=== PATIENT | female | born 1940 | race Caucasian/White ===

== ENCOUNTER 2016-07-03 02:48 | Inpatient (IN) | payer OTHER ==
[~2016-07-03] VITALS: Ht 154.9 cm; Wt 96.0 kg
[~2016-07-03 02:48] MED LIST: ACTONEL150 MG PO; ACTONEL75 MG PO; ACTOS15 MG PO; ALLERGY RELIEF10 M1 PO; ALLERGY RELIEF10 M5 PO; AMARYL2 MG PO; AMLODIPINE BESY10 MG PO; AMLODIPINE BESYL5 MG PO; Advair HFA 115/21 IH; Amaryl PO; BACLOFEN10 MG PO; BACTRIM,SEPT1 TABLET PO; BENADRYL25 MG PO; CALCIUM 500 +1 EACH PO; CALCIUM CITRAT1 EA10 PO; CALCIUM CITRAT1 EA18 PO; CALCIUM CITRAT200 MG PO; CLOPIDOGREL75 MG PO; COCONUT OIL1000 MG PO; COLON HEALTH PO; COMBIVENT INH14.7 GM IH; COMPLETE MULTI1 EAC1 PO; COUMADIN,JANTOVE5 MG PO; COZAAR100 MG PO; DAILY VALUE1 EACH PO; DIOVAN160 MG PO; DOCUSATE SODIU100 MG PO; DUONEB 2.5-0.5 M3 ML IH; FIBER; FIBER LAXATIVE500 MG PO; FIBER THERAPY0.52 GM PO; FIBER THERAPY625 MG PO; FISH OIL SOFTG1 EACH PO; FLORASTOR250 MG PO; FUROSEMIDE40 MG PO; GEMFIBROZIL600 MG PO; GLUCOSAMINE &1 EAC1 PO; Glucophage PO; HUMALOG100 UNIT/2 SC; HYDROCODON-ACE1 EAC8 PO; HYDROCODONE-AP1 EA12 PO; LASIX10 MG PO; LASIX40 MG PO; LEVAQUIN500 MG PO; LEVEMIR FL100 UNIT/1 SC; LEVOFLOXACIN250 MG PO; LEVOTHYROXINE100 MCG PO; LEVOXYL112 MCG PO; Lasix PO; Levothroid,Synthroid PO; METFORMIN HCL500 MG PO; Micro-K,K-Tab,K-Dur, PO; NEURONTIN100 MG PO; NEXIUM40 MG PO; NORVASC5 MG PO; NOVOLOG PE100 UNITS/ SC; NOVOLOG100 UNIT/1 SC; OMEGA 3 500 SO1 EACH PO; OMEGA-3 ACID ETH1 GM PO; OMEPRAZOLE40 M1 PO; Oyst-Cal D, Oscal W/ PO; PERCOCET 5/31 TABLET PO; POTASSIUM GLUCO90 MG PO; PROVENTIL,2.5 MG/3 M IH; Pravachol PO; Protonix PO; SENNA S TABLET1 EACH PO; SIMVASTATIN40 MG PO; SYNTHROID112 MCG PO; Senokot S,Pericolace PO; THERAGRAN1 TABLET PO; TOUJEO SOL300 UNIT/1 SC; Theragran PO; VICODIN ES 7.51 EAC1 PO; VICODIN ES 71 TABLET PO; VITAMIN D50000 UNI1 PO; Vitamin D, Drisdol PO; XARELTO20 MG PO; Zocor PO
[2016-07-03 03:18] LABS: HEMATOCRIT 43.1 % (36.0-46.0); MCH 27.5 PG (29.0-34.0); MCHC 31.6 G/DL (30.0-36.0); MCV 87.2 FL (83-99); MEAN PLAT.VOLUME 10.9 uM^3 (9.5-12.4); PLATELET COUNT 274 K/uL (156-360); RBC DIS.WIDTH-CV 17.4 % (11.8-14.6); RBC DIS.WIDTH-SD 54.8 % (39-53); RED BLOOD COUNT 4.94 M/uL (3.80-5.20); WHITE BLOOD COUNT 12.6 K/uL (4.1-10.2)
[2016-07-03 03:19] LABS: EOSINOPHIL (%) 1.8 % (0-5); EOSINOPHIL COUNT 0.2 K/uL (0-0.3); IMMATURE GRANULOCYTE (%) 0.5 % (0.0-0.7); IMMATURE GRANULOCYTE COUNT 0.6 K/uL; LYMPHOCYTE COUNT 2.1 K/uL (1.0-2.8); MONOCYTE (%) 8.5 % (3-12); MONOCYTE COUNT 1.1 K/uL (0-0.8); NEUTROPHIL (%) 72.3 % (45-76); NEUTROPHIL COUNT 9.1 K/uL (1.8-6.4)
[2016-07-03 03:29] LABS: INTER. NORMALIZED RATIO 1.2; PROTHROMBIN TIME 12.6 (9.2-11.2)
[2016-07-03 03:36] LABS: CHLORIDE 114 mEq/L (99-109); POTASSIUM 4.9 mEq/L (3.7-5.4); SODIUM 146 mEq/L (136-147)
[2016-07-03 03:38] LABS: GLUCOSE 70 mg/dL (70-99)
[2016-07-03 03:39] LABS: ANION GAP 13 MEQ/L (2-14)
[2016-07-03 03:42] LABS: GFR ESTIMATE (CALCULATED) 46 mL/min/
[2016-07-03 03:43] LABS: UREA NITROGEN (BUN) 43 mg/dL (9-23)
[2016-07-03 04:08] LABS: HDL CHOLESTEROL 32 MG/DL (Desirable>=50); LDL CHOLESTEROL 131 mg/dL (Desirable<100); NON-HDL CHOLESTEROL 166 mg/dL (Desirable<160); TOTAL CHOLESTEROL 198 mg/dL (Desirable<200); TRIGLYCERIDES 173 MG/DL (Normal: <150)
[2016-07-03 04:09] LABS: ADD MIUA? YES; BILIRUBIN NEGATIVE; BLOOD SMALL; COLOR YELLOW ((YELLOW)); GLUCOSE (STRIP) NEGATIVE; KETONES NEGATIVE; LEUKOCYTES SMALL; NITRITE POSITIVE; PROTEIN (STRIP) NEGATIVE; SPECIFIC GRAVITY 1.012 (1.000-1.030); UROBILINOGEN 0.2 MG/DL (0.2-1.0)
[2016-07-03 04:13] LABS: BACTERIA NONE SEEN /HPF; EPITHELIAL CELLS RARE /HPF; MUCUS TRACE /LPF; RED BLOOD CELLS 0-5 /HPF (0-5); UCUL ADDED? NO; WHITE BLOOD CELLS 15-20 /HPF (0-5)
[2016-07-03 05:24] LABS: POINT-OF-CARE METER ID UU14100415
[2016-07-03 06:22] VITALS: BP 136/66
[2016-07-03 07:04] LABS: Estimated Average Glucose 223 mg/dL (70-123)
[2016-07-03 07:07] LABS: HEMOGLOBIN A1c (GLYCOHEMOGLOB) 9.4 % HGB (Below 5.7)
[2016-07-03 08:06] VITALS: BP 166/70
[2016-07-03 11:39] VITALS: BP 142/65
[2016-07-03 13:14] LABS: ALKALINE PHOSPHATASE 59 IU/L (3-129); ANION GAP 10 MEQ/L (2-14); CHLORIDE 110 MEQ/L (99-109); GFR ESTIMATE (CALCULATED) 51 mL/min/; MCH 26.7 PG (29.0-34.0); MCHC 30.3 G/DL (30.0-36.0); MCV 88.1 FL (83-99); MEAN PLAT.VOLUME 10.9 uM^3 (9.5-12.4); PLATELET COUNT 226 K/uL (156-360); POTASSIUM 4.1 MEQ/L (3.7-5.4); RBC DIS.WIDTH-CV 17.2 % (11.8-14.6); RBC DIS.WIDTH-SD 55.3 % (39-53); SAMPLE HEMOLYSIS CHECK 0; SAMPLE ICTERIC CHECK 0; SAMPLE LIPEMIA CHECK 0; SODIUM 141 MEQ/L (136-147); TOTAL BILIRUBIN 0.3 MG/DL (0.0-1.0); UREA NITROGEN (BUN) 38 mg/dL (9-23); WHITE BLOOD COUNT 9.4 K/uL (4.1-10.2)
[2016-07-03 13:16] LABS: GLUCOSE 212 mg/dL (70-99)
[2016-07-03 15:36] VITALS: BP 168/73
[2016-07-03 20:06] VITALS: BP 192/86
[2016-07-03 23:50] VITALS: BP 151/68
[2016-07-04 03:41] VITALS: BP 159/78
[2016-07-04 07:49] VITALS: BP 159/67
[2016-07-04 07:49] LABS: POINT-OF-CARE METER ID UU14188625
[2016-07-04 11:35] VITALS: BP 141/63
[2016-07-04 15:38] VITALS: BP 142/70
[2016-07-04 19:29] VITALS: BP 174/72
[2016-07-05] VITALS (7 sets, daily range): BP systolic 153–180; BP diastolic 67–72
[2016-07-06 08:08] VITALS: BP 180/83
[2016-07-06 10:11] LABS: POINT-OF-CARE METER ID UU14188625
[2016-07-06 11:28] LABS: POINT-OF-CARE METER ID UU14188625
[2016-07-06 16:42] LABS: POINT-OF-CARE METER ID UU14174225
[2016-07-06 16:43] VITALS: BP 175/64
[2016-07-06 22:03] LABS: POINT-OF-CARE METER ID UU14174225
[2016-07-07 00:38] VITALS: BP 173/71
[2016-07-07 07:53] VITALS: BP 161/70
== END 2016-07-07 14:25 | DRG 690 ==
LOC: EME 02:48 → 5SOUTH 05:05 → EDOF 05:05 → 5SOUTH 06:03
PROVIDERS: Emergency Medicine; Internal Medicine
DX: N39.0 Urinary tract infection, site not specified (principal); R41.0 Disorientation, unspecified; N17.9 Acute kidney failure, unspecified; S93.491A Sprain of other ligament of right ankle, initial encounter; S92.224A Nondisplaced fracture of lateral cuneiform of right foot, initial encounter for closed fracture; S92.324A Nondisplaced fracture of second metatarsal bone, right foot, initial encounter for closed fracture; W18.39XA Other fall on same level, initial encounter; Y92.009 Unspecified place in unspecified non-institutional (private) residence as the place of occurrence of the external cause; M50.322 Other cervical disc degeneration at C5-C6 level; R25.1 Tremor, unspecified; E66.01 Morbid (severe) obesity due to excess calories; Z68.41 Body mass index [BMI] 40.0-44.9, adult; I10 Essential (primary) hypertension; K21.9 Gastro-esophageal reflux disease without esophagitis; E11.42 Type 2 diabetes mellitus with diabetic polyneuropathy; J44.9 Chronic obstructive pulmonary disease, unspecified; E03.9 Hypothyroidism, unspecified; E78.00 Pure hypercholesterolemia, unspecified; E78.5 Hyperlipidemia, unspecified; D64.9 Anemia, unspecified; R53.1 Weakness; G89.29 Other chronic pain; M54.9 Dorsalgia, unspecified; G47.33 Obstructive sleep apnea (adult) (pediatric); I25.2 Old myocardial infarction; H91.93 Unspecified hearing loss, bilateral; Z66 Do not resuscitate; Z86.73 Personal history of transient ischemic attack (TIA), and cerebral infarction without residual deficits; Z86.711 Personal history of pulmonary embolism; Z86.718 Personal history of other venous thrombosis and embolism; Z79.01 Long term (current) use of anticoagulants; Z79.4 Long term (current) use of insulin
CPT/HCPCS: 70450; 72040; 73590; 73610; 73630; 73700; 73702; 80048; 80053; 80061; 81003; 82948; 83036; 85025; 85027; 85610; 85730; 92610 GN; 93005; 93880; 94640; 94640 76; 94760; 94799; 97530 GP; 99202; 99281; 99285; J0696; J1815; J7030; J7050

== ENCOUNTER → 2016-07-26 | Outpatient (CLI) | payer OTHER | END | disposition home or self-care (01) | LOC: RAD 09:09 | DX: N20.0 Calculus of kidney (principal) | CPT/HCPCS: 74160 ==

== ENCOUNTER 2017-04-21 10:42 | Observation (INO) | payer OTHER ==
[~2017-04-21] VITALS: Ht 152.4 cm; Wt 93.0 kg
[2017-04-21] MEDS ORDERED: MELATONIN5 M3 PO (11:05)
[2017-04-21] MEDS ORDERED: FUROSEMIDE40 MG PO (11:05)
[2017-04-21] MEDS ORDERED: TOPAMAX50 MG PO (11:06)
[2017-04-21 11:21] LABS: BASOPHIL (%) 0.2 % (0-1); EOSINOPHIL (%) 1.4 % (0-5); EOSINOPHIL COUNT 0.2 K/uL (0-0.3); HEMOGLOBIN 14.3 G/DL (11.9-15.5); IMMATURE GRANULOCYTE (%) 0.9 % (0.0-0.7); LYMPHOCYTE (%) 11.4 % (15-42); LYMPHOCYTE COUNT 1.3 K/uL (1.0-2.8); MCH 30.2 PG (29.0-34.0); MCHC 32.5 G/DL (30.0-36.0); MONOCYTE (%) 6.4 % (3-12); MONOCYTE COUNT 0.7 K/uL (0-0.8); NEUTROPHIL (%) 79.7 % (45-76); NEUTROPHIL COUNT 9.3 K/uL (1.8-6.4); PLATELET COUNT 168 K/uL (156-360); RBC DIS.WIDTH-SD 47.7 % (39-53); RED BLOOD COUNT 4.73 M/uL (3.80-5.20); WHITE BLOOD COUNT 11.7 K/uL (4.1-10.2)
[2017-04-21 11:21] LABS: APPEARANCE SL.HAZY ((CLEAR)); BILIRUBIN NEGATIVE; BLOOD NEGATIVE; COLOR YELLOW ((YELLOW)); GLUCOSE (STRIP) NEGATIVE; KETONES NEGATIVE; LEUKOCYTES TRACE; NITRITE NEGATIVE; PROTEIN (STRIP) NEGATIVE; SPECIFIC GRAVITY 1.019 (1.000-1.030); UROBILINOGEN 0.2 MG/DL (0.2-1.0)
[2017-04-21 11:28] LABS: BACTERIA RARE /HPF; EPITHELIAL CELLS RARE /HPF; HYALINE CASTS 30-40 /LPF; MUCUS TRACE /LPF; RED BLOOD CELLS 0-5 /HPF (0-5); UCUL ADDED? YES; WHITE CELL CASTS 0-5 /LPF
[2017-04-21 11:37] LABS: ALBUMIN 3.3 g/dL (3.2-4.8)
[2017-04-21 11:38] LABS: CHLORIDE 107 mEq/L (99-109); SODIUM 139 mEq/L (136-147)
[2017-04-21 11:40] LABS: GLUCOSE 158 mg/dL (70-99)
[2017-04-21 11:42] LABS: TOTAL BILIRUBIN 0.4 mg/dL (0.0-1.0)
[2017-04-21 11:43] LABS: ALKALINE PHOSPHATASE 65 IU/L (3-129)
[2017-04-21 11:44] LABS: CREATININE 1.1 mg/dL (0.6-1.3); GFR ESTIMATE (CALCULATED) 51 mL/min/
[2017-04-21 11:45] LABS: AST (GOT) 55 IU/L (2-34); UREA NITROGEN (BUN) 32 mg/dL (9-23)
[2017-04-21 11:47] LABS: ALT (GPT) 46 IU/L (3-49)
[2017-04-21 17:01] VITALS: BP 172/72
[2017-04-21 20:25] VITALS: BP 170/83
[2017-04-21 23:49] VITALS: BP 176/70
[2017-04-22 04:00] VITALS: BP 174/80
[2017-04-22 11:40] VITALS: BP 146/79
[2017-04-22] MEDS ORDERED: CIPRO500 MG PO (12:50)
== END 2017-04-22 14:32 | disposition home or self-care (01) ==
LOC: EME 10:42 → EDOF 14:34 → ENRESERV 14:38 → EDOF 14:58 → ENRESERV 15:03 → 5WEST 16:50
PROVIDERS: Emergency Medicine; Internal Medicine
DX: R41.82 Altered mental status, unspecified (principal); W19.XXXA Unspecified fall, initial encounter; E86.0 Dehydration; N39.0 Urinary tract infection, site not specified; Z86.73 Personal history of transient ischemic attack (TIA), and cerebral infarction without residual deficits; Z86.718 Personal history of other venous thrombosis and embolism; F03.90 Unspecified dementia, unspecified severity, without behavioral disturbance, psychotic disturbance, mood disturbance, and anxiety; E11.9 Type 2 diabetes mellitus without complications; Z79.4 Long term (current) use of insulin; K21.9 Gastro-esophageal reflux disease without esophagitis; E03.9 Hypothyroidism, unspecified; J44.9 Chronic obstructive pulmonary disease, unspecified; I10 Essential (primary) hypertension; E78.5 Hyperlipidemia, unspecified; G89.29 Other chronic pain; M54.9 Dorsalgia, unspecified; D64.9 Anemia, unspecified; Z90.49 Acquired absence of other specified parts of digestive tract; Z90.710 Acquired absence of both cervix and uterus; H91.90 Unspecified hearing loss, unspecified ear; Z88.0 Allergy status to penicillin; Z88.6 Allergy status to analgesic agent
CPT/HCPCS: 70450; 71010; 80053; 81003; 82948; 83605; 85025; 87040; 87077; 87086; 87186; 93005; 99202; 99281; 99285; G0378; G8978 GP CM; G8979 GP CK; G8980 GP CM; G8987 GO CL; G8988 GO CK; G8989 GO CL; J0696; J1815; J7040

== ENCOUNTER 2017-04-29 13:11 | Inpatient (IN) | payer OTHER ==
[~2017-04-29] VITALS: Ht 165.1 cm; Wt 91.8 kg
[~2017-04-29 13:11] MED LIST changes: +CIPRO500 MG PO; +MELATONIN5 M3 PO; +TOPAMAX50 MG PO
[2017-04-29 14:37] LABS: BASOPHIL (%) 0.2 % (0-1); EOSINOPHIL (%) 0.3 % (0-5); HEMATOCRIT 42.2 % (36.0-46.0); HEMOGLOBIN 13.6 G/DL (11.9-15.5); IMMATURE GRANULOCYTE (%) 0.7 % (0.0-0.7); LYMPHOCYTE (%) 10.8 % (15-42); LYMPHOCYTE COUNT 1.4 K/uL (1.0-2.8); MCHC 32.2 G/DL (30.0-36.0); MONOCYTE (%) 4.9 % (3-12); MONOCYTE COUNT 0.6 K/uL (0-0.8); NEUTROPHIL (%) 83.1 % (45-76); NEUTROPHIL COUNT 10.4 K/uL (1.8-6.4); PLATELET COUNT 212 K/uL (156-360); RBC DIS.WIDTH-CV 13.7 % (11.8-14.6); RBC DIS.WIDTH-SD 46.8 % (39-53); RED BLOOD COUNT 4.54 M/uL (3.80-5.20); WHITE BLOOD COUNT 12.5 K/uL (4.1-10.2)
[2017-04-29 14:43] LABS: INTER. NORMALIZED RATIO 1.3
[2017-04-29 14:45] LABS: CHLORIDE 104 mEq/L (99-109); POTASSIUM 5.2 mEq/L (3.7-5.4); SODIUM 138 mEq/L (136-147)
[2017-04-29 14:46] LABS: PTT 34.7 SEC (25-37)
[2017-04-29 14:47] LABS: GLUCOSE 393 mg/dL (70-99)
[2017-04-29 14:49] LABS: APPEARANCE SL.HAZY ((CLEAR)); BILIRUBIN NEGATIVE; BLOOD LARGE; COLOR YELLOW ((YELLOW)); GLUCOSE (STRIP) >=500; KETONES NEGATIVE; LEUKOCYTES NEGATIVE; NITRITE NEGATIVE; PROTEIN (STRIP) NEGATIVE; SPECIFIC GRAVITY 1.015 (1.000-1.030); UROBILINOGEN 0.2 MG/DL (0.2-1.0)
[2017-04-29 14:51] LABS: CREATININE 1.5 mg/dL (0.6-1.3); GFR ESTIMATE (CALCULATED) 36 mL/min/
[2017-04-29 14:52] LABS: UREA NITROGEN (BUN) 37 mg/dL (9-23)
[2017-04-29 14:58] LABS: BACTERIA NONE SEEN /HPF; EPITHELIAL CELLS RARE /HPF; MUCUS TRACE /LPF; RED BLOOD CELLS TNTC /HPF (0-5); UCUL ADDED? YES
[2017-04-29 14:58] LABS: TROP-I INTERPRETATION NEGATIVE; TROPONIN-I < 0.01 ng/mL (0.0-0.30)
[2017-04-29] MEDS ORDERED: PLAVIX75 MG PO (18:21)
[2017-04-29] MEDS ORDERED: TOUJEO SOL300 UNIT/1 SC (18:24)
[2017-04-29] MEDS ORDERED: HUMALOG100 UNIT/2 SC (18:25)
[2017-04-29 19:52] LABS: TROP-I INTERPRETATION NEGATIVE; TROPONIN-I < 0.01 ng/mL (0.0-0.30)
[2017-04-30 01:44] LABS: TROP-I INTERPRETATION NEGATIVE; TROPONIN-I < 0.01 ng/mL (0.0-0.30)
[2017-04-30 09:16] LABS: HEMATOCRIT 38.2 % (36.0-46.0); HEMOGLOBIN 12.3 G/DL (11.9-15.5); MCH 29.9 PG (29.0-34.0); MCHC 32.2 G/DL (30.0-36.0); MCV 92.7 FL (83-99); PLATELET COUNT 191 K/uL (156-360); RBC DIS.WIDTH-CV 13.9 % (11.8-14.6); RBC DIS.WIDTH-SD 47.7 % (39-53); RED BLOOD COUNT 4.12 M/uL (3.80-5.20); WHITE BLOOD COUNT 8.2 K/uL (4.1-10.2)
[2017-04-30 09:31] LABS: CHLORIDE 110 mEq/L (99-109); SODIUM 142 mEq/L (136-147)
[2017-04-30 09:33] LABS: GLUCOSE 203 mg/dL (70-99)
[2017-04-30 09:36] LABS: CREATININE 1.1 mg/dL (0.6-1.3); GFR ESTIMATE (CALCULATED) 51 mL/min/
[2017-04-30 09:37] LABS: UREA NITROGEN (BUN) 31 mg/dL (9-23)
[2017-04-30 11:30] VITALS: BP 147/60
[2017-04-30 16:00] VITALS: BP 148/78
[2017-04-30 20:00] VITALS: BP 148/74
[2017-04-30 23:40] VITALS: BP 160/60
[2017-05-01 04:10] VITALS: BP 149/63
[2017-05-01 06:03] LABS: BASOPHIL (%) 0.3 % (0-1); EOSINOPHIL (%) 2.5 % (0-5); EOSINOPHIL COUNT 0.3 K/uL (0-0.3); HEMATOCRIT 38.3 % (36.0-46.0); HEMOGLOBIN 12.1 G/DL (11.9-15.5); IMMATURE GRANULOCYTE (%) 0.9 % (0.0-0.7); LYMPHOCYTE (%) 17.9 % (15-42); LYMPHOCYTE COUNT 1.8 K/uL (1.0-2.8); MCH 29.3 PG (29.0-34.0); MCHC 31.6 G/DL (30.0-36.0); MCV 92.7 FL (83-99); NEUTROPHIL (%) 68.4 % (45-76); NEUTROPHIL COUNT 6.9 K/uL (1.8-6.4); PLATELET COUNT 200 K/uL (156-360); RBC DIS.WIDTH-CV 13.8 % (11.8-14.6); RBC DIS.WIDTH-SD 46.9 % (39-53); RED BLOOD COUNT 4.13 M/uL (3.80-5.20); WHITE BLOOD COUNT 10.1 K/uL (4.1-10.2)
[2017-05-01 06:21] LABS: CHLORIDE 109 MEQ/L (99-109); GFR ESTIMATE (CALCULATED) 57 mL/min/; GLUCOSE 174 mg/dL (70-99); POTASSIUM 3.8 MEQ/L (3.7-5.4); SODIUM 139 MEQ/L (136-147); UREA NITROGEN (BUN) 29 mg/dL (9-23)
[2017-05-01 08:03] VITALS: BP 149/63
[2017-05-01 11:20] VITALS: BP 146/68
[2017-05-01 15:44] VITALS: BP 146/65
[2017-05-01 20:14] VITALS: BP 142/51
[2017-05-01 23:48] VITALS: BP 145/65
[2017-05-02 03:15] VITALS: BP 116/51
[2017-05-02 07:42] VITALS: BP 151/64
[2017-05-02 11:36] VITALS: BP 140/55
[2017-05-02 15:40] VITALS: BP 143/65
[2017-05-02 20:25] VITALS: BP 138/71
[2017-05-03 00:30] VITALS: BP 137/75
[2017-05-03 04:15] VITALS: BP 149/62
[2017-05-03 08:00] VITALS: BP 179/73
[2017-05-03 17:06] VITALS: BP 137/56
[2017-05-03 20:28] VITALS: BP 143/63
[2017-05-04 04:36] VITALS: BP 144/78
[2017-05-04 08:00] VITALS: BP 162/79; BP 168/73
[2017-05-04] MEDS ORDERED: CEPHALEXIN250 MG PO (09:36)
== END 2017-05-04 11:15 | disposition home or self-care (01) | DRG 871 ==
LOC: EME 13:11 → 4SOUTH 18:58 → EDOF 18:58 → ENRESERV 19:00 → 4SOUTH 04-30 11:00
PROVIDERS: Emergency Medicine; Hospitalist; Internal Medicine
DX: A41.9 Sepsis, unspecified organism (principal); G93.41 Metabolic encephalopathy; N17.9 Acute kidney failure, unspecified; N39.0 Urinary tract infection, site not specified; I82.441 Acute embolism and thrombosis of right tibial vein; G89.29 Other chronic pain; I10 Essential (primary) hypertension; K21.9 Gastro-esophageal reflux disease without esophagitis; G47.33 Obstructive sleep apnea (adult) (pediatric); J44.9 Chronic obstructive pulmonary disease, unspecified; D64.9 Anemia, unspecified; E78.5 Hyperlipidemia, unspecified; E03.9 Hypothyroidism, unspecified; E11.65 Type 2 diabetes mellitus with hyperglycemia; E66.01 Morbid (severe) obesity due to excess calories; Z68.33 Body mass index [BMI] 33.0-33.9, adult; Z90.710 Acquired absence of both cervix and uterus; Z87.442 Personal history of urinary calculi; Z87.440 Personal history of urinary (tract) infections; Z86.711 Personal history of pulmonary embolism; Z79.01 Long term (current) use of anticoagulants
CPT/HCPCS: 70450; 71045; 73610; 73630; 74176; 80048; 81003; 82948; 83605; 84484; 85025; 85027; 85610; 85730; 87040; 87086; 93005; 93970; 99281; 99285; J0696; J1815; J1956; J7030

== ENCOUNTER → 2017-08-20 | Emergency (ER) | payer OTHER ==
[~2017-08-20] VITALS: Ht 152.4 cm; Wt 94.1 kg
[~2017-08-20] MED LIST changes: +AMLACTIN1 EACH TP; +CEFTIN500 MG PO; +CEPHALEXIN250 MG PO; +CLARITIN10 M3 PO; +FISH OIL 1,3601 EACH PO; +FLOMAX0.4 MG PO; +LASIX20 MG PO; +PLAVIX75 MG PO; +POTASSIUM-9999 MG PO; +STOOL SOFTENER250 MG PO; +ZANTAC150 MG PO
[2017-08-20 20:10] LABS: HEMATOCRIT 43.3 % (36.0-46.0); MCHC 32.3 G/DL (30.0-36.0); MCV 92.7 FL (83-99); PLATELET COUNT 202 K/uL (156-360); RBC DIS.WIDTH-CV 14.2 % (11.8-14.6); RBC DIS.WIDTH-SD 47.8 % (39-53); RED BLOOD COUNT 4.67 M/uL (3.80-5.20); WHITE BLOOD COUNT 11.4 K/uL (4.1-10.2)
[2017-08-20 20:30] LABS: ALBUMIN 3.4 g/dL (3.2-4.8)
[2017-08-20 20:31] LABS: CHLORIDE 108 mEq/L (99-109); POTASSIUM 4.6 mEq/L (3.7-5.4); SODIUM 139 mEq/L (136-147)
[2017-08-20 20:33] LABS: GLUCOSE 258 mg/dL (70-99); TOTAL PROTEIN 7.5 g/dL (6.4-8.3)
[2017-08-20 20:35] LABS: TOTAL BILIRUBIN 0.3 mg/dL (0.0-1.0)
[2017-08-20 20:36] LABS: ALKALINE PHOSPHATASE 72 IU/L (3-129)
[2017-08-20 20:37] LABS: CREATININE 1.3 mg/dL (0.6-1.3); GFR ESTIMATE (CALCULATED) 42 mL/min/
[2017-08-20 20:38] LABS: AST (GOT) 43 IU/L (2-34); UREA NITROGEN (BUN) 37 mg/dL (9-23)
[2017-08-20 20:39] LABS: ALT (GPT) 43 IU/L (3-49)
[2017-08-20 20:53] LABS: APPEARANCE SL.HAZY ((CLEAR)); BILIRUBIN NEGATIVE; BLOOD LARGE; COLOR YELLOW ((YELLOW)); GLUCOSE (STRIP) 50; KETONES NEGATIVE; LEUKOCYTES MODERATE; NITRITE POSITIVE; PROTEIN (STRIP) 30; SPECIFIC GRAVITY 1.025 (1.000-1.030); UROBILINOGEN 0.2 MG/DL (0.2-1.0)
[2017-08-20 22:11] LABS: BACTERIA 3+ /HPF; EPITHELIAL CELLS 1+ /HPF; MUCUS 1+ /LPF; UCUL ADDED? YES
[2017-08-21 08:30] VITALS: BP 179/84
== END | disposition home or self-care (01) ==
LOC: EME 19:22
DX: N20.1 Calculus of ureter (principal); N39.0 Urinary tract infection, site not specified; I10 Essential (primary) hypertension; E11.9 Type 2 diabetes mellitus without complications; E03.9 Hypothyroidism, unspecified; I25.2 Old myocardial infarction; Z87.442 Personal history of urinary calculi; Z86.718 Personal history of other venous thrombosis and embolism; Z86.73 Personal history of transient ischemic attack (TIA), and cerebral infarction without residual deficits; Z90.49 Acquired absence of other specified parts of digestive tract; Z79.4 Long term (current) use of insulin; Z88.0 Allergy status to penicillin; Z88.6 Allergy status to analgesic agent
CPT/HCPCS: 74177; 80053; 81003; 85027; 87077; 87086; 87186; 99281; 99285; J7120

== ENCOUNTER 2017-08-22 06:21 | Inpatient (IN) | payer OTHER ==
[~2017-08-22] VITALS: Ht 154.9 cm; Wt 96.9 kg
[~2017-08-22 06:21] MED LIST changes: -AMLACTIN1 EACH TP; -CEFTIN500 MG PO; -CLARITIN10 M3 PO; -FISH OIL 1,3601 EACH PO; -LASIX20 MG PO; -POTASSIUM-9999 MG PO; -STOOL SOFTENER250 MG PO; -ZANTAC150 MG PO
[2017-08-22 07:23] LABS: BASOPHIL (%) 0.1 % (0-1); EOSINOPHIL COUNT 0.2 K/uL (0-0.3); HEMATOCRIT 38.3 % (36.0-46.0); HEMOGLOBIN 12.6 G/DL (11.9-15.5); IMMATURE GRANULOCYTE (%) 0.7 % (0.0-0.7); LYMPHOCYTE (%) 7.8 % (15-42); LYMPHOCYTE COUNT 1.3 K/uL (1.0-2.8); MCH 30.3 PG (29.0-34.0); MCHC 32.9 G/DL (30.0-36.0); MCV 92.1 FL (83-99); MONOCYTE (%) 7.1 % (3-12); MONOCYTE COUNT 1.1 K/uL (0-0.8); NEUTROPHIL (%) 83.3 % (45-76); NEUTROPHIL COUNT 13.3 K/uL (1.8-6.4); PLATELET COUNT 187 K/uL (156-360); RBC DIS.WIDTH-CV 14.6 % (11.8-14.6); RBC DIS.WIDTH-SD 48.9 % (39-53); RED BLOOD COUNT 4.16 M/uL (3.80-5.20); WHITE BLOOD COUNT 15.9 K/uL (4.1-10.2)
[2017-08-22 07:55] LABS: CHLORIDE 104 MEQ/L (99-109); CREATININE 1.7 MG/DL (0.6-1.3); GFR ESTIMATE (CALCULATED) 31 mL/min/; GLUCOSE 183 mg/dL (70-99); POTASSIUM 4.4 MEQ/L (3.7-5.4); SODIUM 138 MEQ/L (136-147); UREA NITROGEN (BUN) 37 mg/dL (9-23)
[2017-08-22 11:05] VITALS: BP 146/75
[2017-08-22] MEDS ORDERED: LASIX20 MG PO (14:36)
[2017-08-22] MEDS ORDERED: CLARITIN10 M3 PO (14:43)
[2017-08-22] MEDS ORDERED: STOOL SOFTENER250 MG PO (14:45)
[2017-08-22] MEDS ORDERED: ZANTAC150 MG PO (14:48)
[2017-08-22] MEDS ORDERED: FISH OIL 1,3601 EACH PO (14:52)
[2017-08-22] MEDS ORDERED: POTASSIUM-9999 MG PO (14:54)
[2017-08-22] MEDS ORDERED: AMLACTIN1 EACH TP (14:58)
[2017-08-22 16:00] VITALS: BP 186/77
[2017-08-22 23:15] VITALS: BP 148/66
[2017-08-23 05:51] LABS: BASOPHIL (%) 0.2 % (0-1); EOSINOPHIL (%) 1.2 % (0-5); EOSINOPHIL COUNT 0.1 K/uL (0-0.3); HEMATOCRIT 36.6 % (36.0-46.0); HEMOGLOBIN 11.8 G/DL (11.9-15.5); IMMATURE GRANULOCYTE (%) 0.7 % (0.0-0.7); LYMPHOCYTE COUNT 1.8 K/uL (1.0-2.8); MCH 29.9 PG (29.0-34.0); MCHC 32.2 G/DL (30.0-36.0); MCV 92.9 FL (83-99); MONOCYTE COUNT 1.1 K/uL (0-0.8); NEUTROPHIL (%) 73.9 % (45-76); NEUTROPHIL COUNT 8.8 K/uL (1.8-6.4); PLATELET COUNT 180 K/uL (156-360); RBC DIS.WIDTH-CV 14.9 % (11.8-14.6); RBC DIS.WIDTH-SD 51.3 % (39-53); RED BLOOD COUNT 3.94 M/uL (3.80-5.20); WHITE BLOOD COUNT 11.9 K/uL (4.1-10.2)
[2017-08-23 06:21] LABS: CHLORIDE 107 MEQ/L (99-109); CREATININE 1.5 MG/DL (0.6-1.3); GFR ESTIMATE (CALCULATED) 36 mL/min/; GLUCOSE 150 mg/dL (70-99); POTASSIUM 4.1 MEQ/L (3.7-5.4); SODIUM 139 MEQ/L (136-147); UREA NITROGEN (BUN) 31 mg/dL (9-23)
[2017-08-23 06:42] VITALS: BP 168/73
[2017-08-23 15:23] VITALS: BP 144/65
[2017-08-23 23:47] VITALS: BP 132/59
[2017-08-24 07:53] VITALS: BP 127/57
[2017-08-24 09:04] LABS: BASOPHIL (%) 0.2 % (0-1); EOSINOPHIL (%) 2.5 % (0-5); EOSINOPHIL COUNT 0.2 K/uL (0-0.3); HEMATOCRIT 34.6 % (36.0-46.0); IMMATURE GRANULOCYTE (%) 0.6 % (0.0-0.7); LYMPHOCYTE (%) 13.5 % (15-42); LYMPHOCYTE COUNT 1.1 K/uL (1.0-2.8); MCH 29.8 PG (29.0-34.0); MCHC 31.8 G/DL (30.0-36.0); MCV 93.8 FL (83-99); MONOCYTE (%) 9.6 % (3-12); MONOCYTE COUNT 0.8 K/uL (0-0.8); NEUTROPHIL (%) 73.6 % (45-76); NEUTROPHIL COUNT 5.9 K/uL (1.8-6.4); PLATELET COUNT 161 K/uL (156-360); RBC DIS.WIDTH-CV 14.6 % (11.8-14.6); RBC DIS.WIDTH-SD 50.8 % (39-53); RED BLOOD COUNT 3.69 M/uL (3.80-5.20)
[2017-08-24 09:27] LABS: CHLORIDE 109 MEQ/L (99-109); CREATININE 1.1 MG/DL (0.6-1.3); GFR ESTIMATE (CALCULATED) 51 mL/min/; GLUCOSE 161 mg/dL (70-99); POTASSIUM 3.6 MEQ/L (3.7-5.4); SODIUM 141 MEQ/L (136-147); UREA NITROGEN (BUN) 26 mg/dL (9-23)
[2017-08-24 16:20] VITALS: BP 127/73
[2017-08-25 00:38] VITALS: BP 124/61
[2017-08-25 06:59] LABS: BASOPHIL (%) 0.3 % (0-1); EOSINOPHIL (%) 4.4 % (0-5); EOSINOPHIL COUNT 0.3 K/uL (0-0.3); HEMATOCRIT 35.8 % (36.0-46.0); HEMOGLOBIN 11.2 G/DL (11.9-15.5); IMMATURE GRANULOCYTE (%) 0.9 % (0.0-0.7); LYMPHOCYTE (%) 20.7 % (15-42); LYMPHOCYTE COUNT 1.5 K/uL (1.0-2.8); MCH 29.2 PG (29.0-34.0); MCHC 31.3 G/DL (30.0-36.0); MCV 93.5 FL (83-99); MONOCYTE COUNT 0.8 K/uL (0-0.8); NEUTROPHIL (%) 62.7 % (45-76); NEUTROPHIL COUNT 4.4 K/uL (1.8-6.4); PLATELET COUNT 180 K/uL (156-360); RBC DIS.WIDTH-CV 14.5 % (11.8-14.6); RBC DIS.WIDTH-SD 49.9 % (39-53); RED BLOOD COUNT 3.83 M/uL (3.80-5.20)
[2017-08-25 07:23] LABS: CHLORIDE 111 MEQ/L (99-109); CREATININE 1.1 MG/DL (0.6-1.3); GFR ESTIMATE (CALCULATED) 51 mL/min/; GLUCOSE 144 mg/dL (70-99); POTASSIUM 3.6 MEQ/L (3.7-5.4); SODIUM 141 MEQ/L (136-147); UREA NITROGEN (BUN) 22 mg/dL (9-23)
[2017-08-25 07:35] VITALS: BP 149/65
[2017-08-25] MEDS ORDERED: CEFTIN500 MG PO (14:15)
== END 2017-08-25 16:45 | disposition home health service (06) | DRG 693 ==
LOC: EME 06:21 → EDOF 07:38 → 5EAST 07:38 → ENRESERV 08:01 → EDOF 09:03 → 5EAST 10:48
PROVIDERS: Emergency Medicine; Hospitalist; Internal Medicine; Nurse Practitioner Adult Health
DX: N13.2 Hydronephrosis with renal and ureteral calculous obstruction (principal); R65.10 Systemic inflammatory response syndrome (SIRS) of non-infectious origin without acute organ dysfunction; N39.0 Urinary tract infection, site not specified; G93.41 Metabolic encephalopathy; N17.9 Acute kidney failure, unspecified; I10 Essential (primary) hypertension; E87.6 Hypokalemia; E87.2 Acidosis; M19.90 Unspecified osteoarthritis, unspecified site; E11.51 Type 2 diabetes mellitus with diabetic peripheral angiopathy without gangrene; E03.9 Hypothyroidism, unspecified; E78.5 Hyperlipidemia, unspecified; W01.0XXA Fall on same level from slipping, tripping and stumbling without subsequent striking against object, initial encounter; Y92.009 Unspecified place in unspecified non-institutional (private) residence as the place of occurrence of the external cause; B96.5 Pseudomonas (aeruginosa) (mallei) (pseudomallei) as the cause of diseases classified elsewhere; Z68.41 Body mass index [BMI] 40.0-44.9, adult; Z79.01 Long term (current) use of anticoagulants; Z86.73 Personal history of transient ischemic attack (TIA), and cerebral infarction without residual deficits; Z90.710 Acquired absence of both cervix and uterus; Z87.442 Personal history of urinary calculi; Z79.4 Long term (current) use of insulin; Z86.718 Personal history of other venous thrombosis and embolism; Z79.899 Other long term (current) drug therapy; Z90.49 Acquired absence of other specified parts of digestive tract; I25.2 Old myocardial infarction; G89.29 Other chronic pain; H91.90 Unspecified hearing loss, unspecified ear
CPT/HCPCS: 70450; 74018; 74177; 76770; 80048; 80053; 81003; 82948; 83605; 85025; 85027; 87040; 87077; 87086; 87186; 99281; 99285; C1753; J0696; J1815; J7030; J7120

== ENCOUNTER 2017-09-06 13:57 | Emergency (ER) | payer OTHER ==
[~2017-09-06] VITALS: Ht 157.5 cm; Wt 88.1 kg
[~2017-09-06 13:57] MED LIST changes: +AMLACTIN1 EACH TP; +CEFTIN500 MG PO; +CLARITIN10 M3 PO; +FISH OIL 1,3601 EACH PO; +LASIX20 MG PO; +POTASSIUM-9999 MG PO; +STOOL SOFTENER250 MG PO; +ZANTAC150 MG PO
[2017-09-06 16:45] VITALS: BP 152/87
== END 2017-09-06 17:12 | disposition home or self-care (01) ==
LOC: EME 13:57
DX: S70.01XA Contusion of right hip, initial encounter (principal); M54.5 Low back pain; W19.XXXA Unspecified fall, initial encounter; Y92.239 Unspecified place in hospital as the place of occurrence of the external cause; I11.0 Hypertensive heart disease with heart failure; I50.9 Heart failure, unspecified; E11.9 Type 2 diabetes mellitus without complications; E03.9 Hypothyroidism, unspecified; I25.2 Old myocardial infarction; Z87.442 Personal history of urinary calculi; Z86.73 Personal history of transient ischemic attack (TIA), and cerebral infarction without residual deficits; Z86.718 Personal history of other venous thrombosis and embolism; Z90.49 Acquired absence of other specified parts of digestive tract; Z79.4 Long term (current) use of insulin; Z79.02 Long term (current) use of antithrombotics/antiplatelets; Z88.0 Allergy status to penicillin; Z88.6 Allergy status to analgesic agent
CPT/HCPCS: 72100; 73502; 99281; 99284

== ENCOUNTER 2017-09-08 07:57 | Observation (INO) | payer OTHER ==
[~2017-09-08] VITALS: Ht 165.1 cm; Wt 91.0 kg
[2017-09-08 09:09] LABS: APPEARANCE CLEAR ((CLEAR)); BILIRUBIN NEGATIVE; BLOOD NEGATIVE; COLOR YELLOW ((YELLOW)); GLUCOSE (STRIP) NEGATIVE; KETONES NEGATIVE; LEUKOCYTES NEGATIVE; NITRITE NEGATIVE; PROTEIN (STRIP) NEGATIVE; SPECIFIC GRAVITY 1.011 (1.000-1.030); UCUL ADDED? NO; UROBILINOGEN 0.2 MG/DL (0.2-1.0)
[2017-09-08 09:17] LABS: HEMATOCRIT 38.7 % (36.0-46.0); HEMOGLOBIN 12.1 G/DL (11.9-15.5); MCH 29.5 PG (29.0-34.0); MCHC 31.3 G/DL (30.0-36.0); MCV 94.4 FL (83-99); PLATELET COUNT 222 K/uL (156-360); RBC DIS.WIDTH-CV 14.2 % (11.8-14.6); RBC DIS.WIDTH-SD 48.9 % (39-53); WHITE BLOOD COUNT 11.4 K/uL (4.1-10.2)
[2017-09-08 09:30] LABS: ALBUMIN 3.2 g/dL (3.2-4.8)
[2017-09-08 09:31] LABS: CHLORIDE 107 mEq/L (99-109); POTASSIUM 4.3 mEq/L (3.7-5.4); SODIUM 144 mEq/L (136-147)
[2017-09-08 09:33] LABS: GLUCOSE 170 mg/dL (70-99); TOTAL PROTEIN 7.2 g/dL (6.4-8.3)
[2017-09-08 09:35] LABS: TOTAL BILIRUBIN 0.3 mg/dL (0.0-1.0)
[2017-09-08 09:36] LABS: ALKALINE PHOSPHATASE 65 IU/L (3-129)
[2017-09-08 09:37] LABS: GFR ESTIMATE (CALCULATED) 57 mL/min/
[2017-09-08 09:38] LABS: AST (GOT) 30 IU/L (2-34); UREA NITROGEN (BUN) 36 mg/dL (9-23)
[2017-09-08 09:40] LABS: ALT (GPT) 27 IU/L (3-49)
[2017-09-08 09:44] LABS: TROP-I INTERPRETATION NEGATIVE; TROPONIN-I 0.02 ng/mL (0.0-0.30)
[2017-09-08] MEDS ORDERED: FIBER TABS625 MG PO (10:52)
[2017-09-08] MEDS ORDERED: TOUJEO SOL300 UNIT/1 SC (10:57)
[2017-09-08] MEDS ORDERED: AMLACTIN140 GM TP (11:00)
[2017-09-08 14:30] VITALS: BP 165/72
[2017-09-08 19:00] VITALS: BP 142/63
[2017-09-08 23:17] VITALS: BP 143/65
[2017-09-09 05:34] LABS: HEMATOCRIT 38.8 % (36.0-46.0); HEMOGLOBIN 12.1 G/DL (11.9-15.5); MCH 29.4 PG (29.0-34.0); MCHC 31.2 G/DL (30.0-36.0); MCV 94.2 FL (83-99); PLATELET COUNT 227 K/uL (156-360); RBC DIS.WIDTH-CV 14.1 % (11.8-14.6); RBC DIS.WIDTH-SD 48.9 % (39-53); RED BLOOD COUNT 4.12 M/uL (3.80-5.20); WHITE BLOOD COUNT 10.6 K/uL (4.1-10.2)
[2017-09-09 06:26] LABS: ALBUMIN 2.9 G/DL (3.2-4.8); ALKALINE PHOSPHATASE 51 IU/L (3-129); ALT (GPT) 20 IU/L (3-49); AST (GOT) 22 IU/L (2-34); CHLORIDE 111 MEQ/L (99-109); CREATININE 0.8 MG/DL (0.6-1.3); GFR ESTIMATE (CALCULATED) > 59 mL/min/; POTASSIUM 3.6 MEQ/L (3.7-5.4); SODIUM 145 MEQ/L (136-147); TOTAL BILIRUBIN 0.4 MG/DL (0.0-1.0); TOTAL PROTEIN 6.9 G/DL (6.4-8.3); UREA NITROGEN (BUN) 31 mg/dL (9-23)
[2017-09-09 06:29] LABS: GLUCOSE 51 mg/dL (70-99)
[2017-09-09 09:02] VITALS: BP 183/76
[2017-09-09 11:57] VITALS: BP 149/67
[2017-09-09 15:28] VITALS: BP 137/62
== END 2017-09-09 16:34 | disposition home or self-care (01) ==
LOC: EME 07:57 → 4SOUTH 12:56 → EDOF 12:56 → ENRESERV 12:57 → 4SOUTH 14:14 → ENPENDDIS 09-09 13:06 → 4SOUTH 09-09 16:34
PROVIDERS: Emergency Medicine Emergency Medical Services; Internal Medicine
DX: M25.551 Pain in right hip (principal); R09.02 Hypoxemia; R26.89 Other abnormalities of gait and mobility; M19.90 Unspecified osteoarthritis, unspecified site; E11.65 Type 2 diabetes mellitus with hyperglycemia; Z79.4 Long term (current) use of insulin; E78.5 Hyperlipidemia, unspecified; Z86.718 Personal history of other venous thrombosis and embolism; Z79.01 Long term (current) use of anticoagulants; Z79.02 Long term (current) use of antithrombotics/antiplatelets; I10 Essential (primary) hypertension; I25.10 Atherosclerotic heart disease of native coronary artery without angina pectoris; I25.2 Old myocardial infarction; Z86.73 Personal history of transient ischemic attack (TIA), and cerebral infarction without residual deficits; E03.9 Hypothyroidism, unspecified; Z87.440 Personal history of urinary (tract) infections; Z66 Do not resuscitate; Z88.0 Allergy status to penicillin
CPT/HCPCS: 71045; 72192; 80053; 81003; 82948; 83605; 83880; 84484; 85027; 87040; 93005; 99281; 99285; G0378; J1170; J1815; J7040

== ENCOUNTER 2017-10-01 12:27 | Emergency (ER) | payer OTHER ==
[~2017-10-01] VITALS: Ht 167.6 cm; Wt 84.8 kg
[~2017-10-01 12:27] MED LIST changes: +AMLACTIN140 GM TP; +FIBER TABS625 MG PO
[2017-10-01 13:55] LABS: HEMATOCRIT 38.3 % (36.0-46.0); HEMOGLOBIN 12.3 G/DL (11.9-15.5); MCH 28.5 PG (29.0-34.0); MCHC 32.1 G/DL (30.0-36.0); MCV 88.7 FL (83-99); PLATELET COUNT 338 K/uL (156-360); RBC DIS.WIDTH-CV 13.7 % (11.8-14.6); RED BLOOD COUNT 4.32 M/uL (3.80-5.20); WHITE BLOOD COUNT 14.7 K/uL (4.1-10.2)
[2017-10-01 14:01] LABS: ALBUMIN 2.8 g/dL (3.2-4.8); CHLORIDE 92 mEq/L (99-109); POTASSIUM 3.3 mEq/L (3.7-5.4); SODIUM 137 mEq/L (136-147)
[2017-10-01 14:04] LABS: GLUCOSE 371 mg/dL (70-99); TOTAL PROTEIN 6.9 g/dL (6.4-8.3)
[2017-10-01 14:06] LABS: TOTAL BILIRUBIN 0.4 mg/dL (0.0-1.0)
[2017-10-01 14:07] LABS: ALKALINE PHOSPHATASE 118 IU/L (3-129); CREATININE 1.1 mg/dL (0.6-1.3); GFR ESTIMATE (CALCULATED) 51 mL/min/
[2017-10-01 14:08] LABS: UREA NITROGEN (BUN) 58 mg/dL (9-23)
[2017-10-01 14:09] LABS: AST (GOT) 29 IU/L (2-34)
[2017-10-01 14:10] LABS: ALT (GPT) 23 IU/L (3-49)
[2017-10-01 16:22] LABS: APPEARANCE CLEAR ((CLEAR)); BILIRUBIN NEGATIVE; BLOOD NEGATIVE; COLOR YELLOW ((YELLOW)); GLUCOSE (STRIP) NEGATIVE; KETONES NEGATIVE; LEUKOCYTES NEGATIVE; NITRITE NEGATIVE; PROTEIN (STRIP) NEGATIVE; SPECIFIC GRAVITY 1.011 (1.000-1.030); UCUL ADDED? NO; UROBILINOGEN 0.2 MG/DL (0.2-1.0)
[2017-10-01] MEDS ORDERED: FLEET ENEMA EX230 ML PR (16:51)
[2017-10-01 18:33] VITALS: BP 106/57
== END 2017-10-01 17:17 ==
LOC: EME 12:27
PROVIDERS: Emergency Medicine
DX: K59.00 Constipation, unspecified (principal); M54.2 Cervicalgia; M54.9 Dorsalgia, unspecified; G89.29 Other chronic pain; M48.061 Spinal stenosis, lumbar region without neurogenic claudication; I11.0 Hypertensive heart disease with heart failure; I50.9 Heart failure, unspecified; E11.9 Type 2 diabetes mellitus without complications; E03.9 Hypothyroidism, unspecified; I25.2 Old myocardial infarction; Z86.73 Personal history of transient ischemic attack (TIA), and cerebral infarction without residual deficits; Z86.718 Personal history of other venous thrombosis and embolism; Z90.49 Acquired absence of other specified parts of digestive tract; Z79.4 Long term (current) use of insulin; Z79.01 Long term (current) use of anticoagulants; Z88.0 Allergy status to penicillin; Z88.6 Allergy status to analgesic agent
CPT/HCPCS: 72125; 72128; 72131; 72132; 74177; 80053; 81003; 85027; 99281; 99285; J7030

== ENCOUNTER → 2017-10-17 | Outpatient (CLI) | payer OTHER ==
[~2017-10-17] MED LIST changes: +FLEET ENEMA EX230 ML PR
== END ==
LOC: MRI 10:37 → RAD 11:00
DX: M51.37 Other intervertebral disc degeneration, lumbosacral region (principal); M51.34 Other intervertebral disc degeneration, thoracic region; M51.27 Other intervertebral disc displacement, lumbosacral region; M51.24 Other intervertebral disc displacement, thoracic region; M48.061 Spinal stenosis, lumbar region without neurogenic claudication
CPT/HCPCS: 72148